=== PATIENT | female | born 1945 | race Caucasian/White ===

== ENCOUNTER 2022-12-21 17:02 | Emergency (ER) | payer SELFPAY ==
--- OUTSIDE RECORDS SUMMARY | 2022-12-21 17:16 | XMS REPORT | Continuity of Care Document ---
:1945 Author Organization [facility] t Address [address] [place] [address] Care Team Providers Name Role Phone YARA ARRIETA Primary Care Physician Unavailable ADA MCKEE Attending Clinician Unavailable QUENTIN Attending Clinician Unavailable DR YARA ARRIETA Attending Clinician Unavailable [phone] Attending Clinician Unavailable KAREN FALCON Attending Clinician Unavailable Gareth Attending Clinician Unavailable MARCELO TALLEY Attending Clinician Unavailable LORE POWERS Attending Clinician Unavailable YARA ARRIETA Attending Clinician Unavailable NERI FRASER Attending Clinician Unavailable Leigh Ann Attending Clinician Unavailable MP MULLINS Attending Clinician Unavailable MAXIMINO CERNA Attending Clinician Unavailable IMMANUEL WRAY Attending Clinician Unavailable JULIA COLON Attending Clinician Unavailable QUENTIN Admitting Clinician Unavailable DR YARA ARRIETA Admitting Clinician Unavailable Gareth Admitting Clinician Unavailable LORE POWERS Admitting Clinician Unavailable Leigh Ann Admitting Clinician Unavailable Payers Payer Name Policy Type Policy Number Effective Date Expiration Date S emil MEDICARE - OP [id number] MEDICARE - OP [id number] [place] B-[place]: [id number] 2011 [employer] 00:00:00 MELBA (PPO) [id number] Problems Condition Condition Condition Status Onset Resolution Last Treating Co mments Source Name Details Category Date Date Treatment Clinician Date Obesity Obesity Problem Active [facility] Osteoarthr Osteoarthr Problem Active [facility] Allergies, Adverse Reactions, Alerts Allergy Allergy Status Severity Reaction(s) Onset Inactive Treating Comm ents Source Name Type Date Date Clinician Naloxone Propensi Active Other (See Incontrol Methodi ty to Comments) 07-[address] adverse 00:00: movements Hospit a reaction 00 l s to drug Naloxone Allergy Active [facility] Family History Family Member Diagnosis Comments Start Date Stop Date Source Natural father Cancer [facility] Natural mother Cancer [facility] Social History Social Habit Start Date Stop Date Quantity Comments Source Alcohol intake 2017-09-02 2017-09-02 Current drinker [facility] 00:00:00 00:00:00 of alcohol Hospital (finding) Tobacco use and 2017-07-07 2017-07-07 Smokeless tobacco [facility] exposure 00:00:00 00:00:00 non-user Hospital Sex Ass[birth year] At [birth year] [facility] 00:00:00 00:00:00 Hospital Smoking Status Start Date Stop Date Source Never Smoker [facility] Medications Ordered Filled Start Stop Current Ordering Indication Dosage Frequency Signature Comments Components Source Medication Medication Date Date Medication? Clinician (SIG) Name Name dexlansopra 2016-10 Yes 60mg QD Take 60 mg Methodi zole 1-[address] (DEXILANT) 10:39: daily. Hospi ta 60 mg 59 l capsule leucovorin Yes TK 1 T PO Me thodi 5 mg tablet 9-[address] 00:00: AFTER Hospita 00 METHOTREXA l TE DOSE ONCE WEEKLY. methotrexat Yes INJECT 0.4 Methodi e 25 mg/mL 9-[address] syringe 00:00: WEEKLY Hospita 00 l ondansetron Yes Method i ODT 9-12 st (ZOFRAN-ODT 00:00: Hospit a ) 8 MG 00 l disintegrat ing tablet traMADol Yes TK 1 T PO Meth dulce (ULTRAM) 50 9-[address] mg tablet 00:00: P. Hospita 00 l buPROPion Yes TK 1 T PO Met hodi XL 9-[address] (WELLBUTRIN 00:00: Hospit a XL) 300 MG 00 l 24 hr tablet BOOSTRIX Yes INJECT Methodi TDAP 9-[address] 2.5-8-5 00:00: Hospita Lf-mcg-Lf/0 00 l .5mL vaccine amoxicillin Yes TK 1 T PO M ethodi -pot 9[address] clavulanate 00:00: DAYS Hospit a (AUGMENTIN) 00 l 875-125 mg per tablet butalbital- Yes TK 1 T PO M ethodi acetaminoph 8-[address] en-caff 00:00: UTD. MAX Hospit a (FIORICET, 00 OF 4 TS IN l ESGIC) 24 HOURS. 50-325-40 mg per tablet QUEtiapine Yes TK 1 T PO Me thodi (SEROquel) 8-[address] 200 MG 00:00: Hospita tablet 00 l zolpidem Yes TK 1 T PO Meth dulce (AMBIEN) 10 8-[address] mg tablet 00:00: Hospita 00 l predniSONE Yes TK 1 T PO Me thodi (DELTASONE) 8-[address] 5 mg tablet 00:00: Hospit a 00 l cyanocobala Yes INJECT 1 Me thodi min 1,000 7-[address] mcg/mL 00:00: Hospita injection 00 l gabapentin Yes Methodi (NEURONTIN) 7-01 st 600 mg 00:00: Hospita tablet 00 l ergocalcife Yes TK 1 C PO M ethodi rol 6-[address] (VITAMIN 00:00: Hospita D2) 50,000 00 l unit capsule bupivacaine bupivacaine No bupivacain [facility] HCl 0.5 % HCl 0.5 % e HCl 0.5 da (5 mg/mL) (5 mg/mL) % (5 Medic al injection injection mg/mL) Driss up solution solution injection solution bupropion bupropion No bupropion [facility] HCl XL 300 HCl XL 300 HCl XL 300 da mg 24 hr mg 24 hr mg 24 hr Med ical tablet, tablet, tablet, Group extended extended extended release release release TAKE 1 TAKE 1 TAKE 1 TABLET BY TABLET BY TABLET BY MOUTH DAILY MOUTH DAILY MOUTH DAILY butalbital- butalbital- No butalbital [facility] acetaminoph acetaminoph -acetamino da en-caffeine en-caffeine phen-caffe Medical 50 mg-325 50 mg-325 ine 50 Driss up mg-40 mg mg-40 mg mg-325 tablet TAKE tablet TAKE mg-40 mg 1 TABLET BY 1 TABLET BY tablet MOUTH EVERY MOUTH EVERY TAKE 1 DAY DAY TABLET BY NEEDED FOR NEEDED FOR MOUTH HEADACHE. HEADACHE. EVERY DAY MAX OF 4 MAX OF 4 NEEDED TABLETS IN TABLETS IN FOR 24 HOURS 24 HOURS HEADACHE. MAX OF 4 TABLETS IN 24 HOURS Bystolic 20 Bystolic 20 No Bystolic [facility] mg tablet mg tablet 20 mg da TAKE 1 TAKE 1 tablet Medical TABLET BY TABLET BY TAKE 1 Driss up MOUTH EVERY MOUTH EVERY TABLET BY DAY DAY MOUTH EVERY DAY Celestone Celestone No Celestone [facility] Soluspan 6 Soluspan 6 Soluspan 6 da mg/mL mg/mL mg/mL Medical suspension suspension suspension Group for for for injection injection injection Dexilant 60 Dexilant 60 No Dexilant [facility] mg capsule, mg capsule, 60 mg da delayed delayed capsule, Medic al release release delayed Group release diphenoxyla diphenoxyla No diphenoxyl [facility] te-atropine te-atropine ate-atropi da 2.5 2.5 ne 2.5 Medical mg-0.025 mg mg-0.025 mg mg-0.025 Group tablet TAKE tablet TAKE mg tablet 1 TABLET BY 1 TABLET BY TAKE 1 MOUTH EVERY MOUTH EVERY TABLET BY 8 HOURS 8 HOURS MOUTH NEEDED NEEDED EVERY 8 HOURS NEEDED folic acid folic acid No folic acid [facility] 1 mg tablet 1 mg tablet 1 mg d a TAKE 1 TAKE 1 tablet Medical TABLET BY TABLET BY TAKE 1 Driss up MOUTH EVERY MOUTH EVERY TABLET BY DAY DAY MOUTH EVERY DAY gabapentin gabapentin No gabapentin [facility] 600 mg 600 mg 600 mg da tablet TAKE tablet TAKE tablet Medical 1 TABLET BY 1 TABLET BY TAKE 1 Group MOUTH TWICE MOUTH TWICE TABLET BY DAILY AND 2 DAILY AND 2 MOUTH TABLETS TABLETS TWICE EVERY NIGHT EVERY NIGHT DAILY AND AT BEDTIME AT BEDTIME 2 TABLETS EVERY NIGHT AT BEDTIME hydroxychlo hydroxychlo No hydroxychl [facility] roquine 200 roquine 200 oroquine da mg tablet mg tablet 200 mg Med ical TAKE 2 TAKE 2 tablet Group TABLETS BY TABLETS BY TAKE 2 MOUTH EVERY MOUTH EVERY TABLETS BY DAY DAY MOUTH EVERY DAY irbesartan irbesartan No irbesartan [facility] 300 mg 300 mg 300 mg da tablet tablet tablet Medical Group lidocaine lidocaine No lidocaine [facility] HCl 10 HCl 10 HCl 10 da mg/mL (1 %) mg/mL (1 %) mg/mL (1 Medical injection injection %) Group solution solution injection solution Linzess 290 Linzess 290 No Linzess [facility] mcg capsule mcg capsule 290 mcg da TAKE 1 TAKE 1 capsule Medical CAPSULE BY CAPSULE BY TAKE 1 G roup MOUTH DAILY MOUTH DAILY CAPSULE BY NEEDED NEEDED MOUTH DAILY NEEDED metronidazo metronidazo No metronidaz [facility] le 500 mg le 500 mg ole 500 mg da tablet TAKE tablet TAKE tablet Medical 1 TABLET BY 1 TABLET BY TAKE 1 Group MOUTH TWICE MOUTH TWICE TABLET BY DAILY FOR 7 DAILY FOR 7 MOUTH DAYS DAYS TWICE DAILY FOR 7 DAYS ondansetron ondansetron No ondansetro [facility] 8 mg 8 mg n 8 mg da disintegrat disintegrat disintegra Medical ing tablet ing tablet ting Driss up DISSOLVE DISSOLVE tablet ONE TABLET ONE TABLET DISSOLVE BY MOUTH BY MOUTH ONE TABLET EVERY 8 EVERY 8 BY MOUTH HOURS HOURS EVERY 8 NEEDED NEEDED HOURS NEEDED pantoprazol pantoprazol No pantoprazo [facility] e 40 mg e 40 mg le 40 mg da tablet,zuhair tablet,zuhair tablet,del Medical yed release yed release ayed G roup release prednisone prednisone No prednisone [facility] 5 mg tablet 5 mg tablet 5 mg d a TAKE 1 TAKE 1 tablet Medical TABLET BY TABLET BY TAKE 1 Driss up MOUTH EVERY MOUTH EVERY TABLET BY DAY DAY MOUTH EVERY DAY quetiapine quetiapine No quetiapine [facility] 200 mg 200 mg 200 mg da tablet TAKE tablet TAKE tablet Medical 1 TABLET BY 1 TABLET BY TAKE 1 Group MOUTH DAILY MOUTH DAILY TABLET BY MOUTH DAILY sulfamethox sulfamethox No sulfametho [facility] azole 800 azole 800 xazole 800 da mg-trimetho mg-trimetho mg-trimeth Medical prim 160 mg prim 160 mg oprim 160 Group tablet TAKE tablet TAKE mg tablet 1 TABLET BY 1 TABLET BY TAKE 1 MOUTH TWICE MOUTH TWICE TABLET BY DAILY FOR 5 DAILY FOR 5 MOUTH DAYS DAYS TWICE DAILY FOR 5 DAYS tizanidine tizanidine No tizanidine [facility] 4 mg tablet 4 mg tablet 4 mg d a tablet Medical Group tramadol 50 tramadol 50 No tramadol [facility] mg tablet mg tablet 50 mg da TAKE 1 TAKE 1 tablet Medical TABLET BY TABLET BY TAKE 1 Driss up MOUTH EVERY MOUTH EVERY TABLET BY 6 HOURS 6 HOURS MOUTH EVERY 6 HOURS zolpidem 10 zolpidem 10 No zolpidem [facility] mg tablet mg tablet 10 mg da TAKE 1 TAKE 1 tablet Medical TABLET BY TABLET BY TAKE 1 Driss up MOUTH EVERY MOUTH EVERY TABLET BY DAY AT DAY AT MOUTH BEDTIME BEDTIME EVERY DAY NEEDED NEEDED AT BEDTIME NEEDED Vital Signs Vital Name Observation Time Observation Value Comments Source BP Diastolic 2021-08-07 00:00:00 85 mm[Hg] [facility] Height 2021-08-07 00:00:00 61 [facility]_i[facility] BMI (Body Mass 2021-08-07 00:00:00 34 kg/m2 [facility]) Group BP Systolic 2021-08-07 00:00:00 120 mm[Hg] [facility] Body Weight 2021-08-07 00:00:00 180 [lb_av] [facility] BP Diastolic 2021-03-04 00:00:00 85 mm[Hg] [facility] Height 2021-03-04 00:00:00 61 [in_i] [facility] BMI (Body Mass 2021-03-04 00:00:00 36.8 kg/m2 [facility] BP Systolic 2021-03-04 00:00:00 120 mm[Hg] [facility] Body Weight 2021-03-04 00:00:00 195 [lb_av] [facility] Procedures Procedure Date / Time Performing Clinician Source Performed XR, knee, 1 or 2 view 2021-03-04 00:00:00 [facility] Knee Arthroscopy/surgery [facility] Partial Hysterectomy [facility] Removal of Gallbladder [facility] Plan of Care Planned Activity Planned Date Details Comments Source Future Scheduled 2022-12-21 COVID-19 VACCINE (#1) [facility] Test 17:15:20 [code = COVID-19 VACCINE (#1)] Future Scheduled 2022-12-21 COLONOSCOPY SCREENING [facility] Test 17:15:20 [code = COLONOSCOPY SCREENING] Future Scheduled 2022-12-21 SHINGLES VACCINES ([facility] Test 17:15:20 of 2) [code = SHINGLES VACCINES (1 of 2)] Future Scheduled 2022-12-21 65+ PNEUMOCOCCAL Methodi [facility] Test 17:15:20 VACCINE (1 - PCV) [code = 65+ PNEUMOCOCCAL VACCINE (1 - PCV)] Future Scheduled 2022-12-21 INFLUENZA VACCINE [facility] Test 17:15:20 [code = INFLUENZA VACCINE] Encounters Start End Encounter Admission Attending Care Care Encounter Source Date/Time Date/Time Type Type Clinicians Facility Department ID 2022-08-04 2022-08-04 Emergency ER RYLEE [facility] [id number] [facility] 14:27:00 18:38:00 ADA -[id number] [facility] 2022-08-04 2022-08-04 emergency [id number] 14:27:00 14:27:00 [id number] 2022-05-04 2022-05-04 Outpatient [facility] [id number] [facility] 11:12:00 11:12:00 _JAYME [id number] da [facility] Outre h Program 2022-03-05 2022-03-05 [facility] [id number] El 14:49:00 14:49:00 [id number] [facility] 2021-10-17 2021-10-17 Emergency ER FRANCISCOJojoKAREN [facility] [id number] [place] 13:54:00 18:13:00 [id number] [facility] 2021-08-07 2021-08-07 Outpatient cMcDonald MMG MMG [facility] 01:29:00 01:29:00 1021 Medical Group 2021-08-07 2021-08-07 Outpatient cMcDonald [facility]G [facility] 01:29:00 01:29:00 1025 Medical Group 2021-08-07 2021-08-07 Marcelo ROBERT [place] - [id number] M [facility] 00:00:00 00:00:00 Discovery carol Talley MD: [address] [facility] [address], [place] [address] , Ph. 2021-03-04 2021-03-04 Outpatient DIRK TALLEY [facility] [id number] [facility] 14:03:00 14:03:00 MARCELO [id number] [facility] 2021-03-04 2021-03-04 Outpatient cMcDonald MMG MMG [facility] 03:45:00 03:45:00 0518 [facility] 2021-03-04 2021-03-04 Outpatient cMcDonald MMG MMG [facility] 03:45:00 03:45:00 0520 [facility] 2021-03-04 2021-03-04 Marcelo ROBERT [place] - [id number] M [facility] 00:00:00 00:00:00 Discovery carol Talley MD: [address] [facility] [address], [place] [address] , Ph. 2021-02-17 2021-02-17 Outpatient cMcDonald MMG MMG [facility] 09:11:00 09:11:00 0503 Medical Group 2021-02-17 2021-02-17 Outpatient cMcDonald MMG MMG [facility] 09:11:00 09:11:00 0512 Medical Group 2019-09-17 2019-09-22 Inpatient SHAMIR POWERS [facility] [id number] [facility] 21:14:00 13:46:00 [facility][id number] 2019-08-24 2019-08-24 Outpatient DIRK ARRIETA, [facility] [id number] [facility] 11:11:00 11:11:00 YARA -[id number] [facility] 2019-07-03 2019-07-03 Outpatient DIRK ARRIETA, [facility] [id number] [facility] 11:02:00 11:02:00 YARA -[id number] [facility] 2018-07-27 2018-07-27 Outpatient DIRK ARRIETA, [facility] [id number] [facility] 10:38:00 10:38:00 YARA -[id number] [facility] 2017-02-15 2017-02-15 Outpatient DIRK ARRIETA, [facility] [id number] [facility] 13:16:00 13:16:00 YARA -[id number] [facility] 2016-10-30 2016-10-30 Outpatient DIRK FRASER, [facility] [id number] [place] 10:55:00 10:55:00 NERI -[id number] [facility] 2016-09-18 2016-09-18 Outpatient C_Hall MMG MMG [id number] [facility] 04:09:00 04:09:00 0429 [facility] 2016-09-18 2016-09-18 Outpatient C_Hall MMG MMG [id number] [facility] 04:09:00 04:09:00 0609 [facility] 2016-06-11 2016-06-11 Outpatient DIRK MULLINS, [facility] [id number] [place] 12:16:00 12:16:00 MP [id number] [facility] 2016-05-26 2016-05-26 Outpatient DIRK CERNA [facility] [id number] [place] 12:58:00 12:58:00 MAXIMINO [id number] [facility] 2016-04-16 2016-04-16 Outpatient DIRK CERNA, [facility] [id number] [place] 10:39:00 10:39:00 MAXIMINO [id number] [facility] 2016-02-04 2016-02-04 Outpatient DIRK ARRIETA, [facility] [id number] [facility] 12:00:00 12:00:00 YARA [id number] [facility] 2015-08-15 2015-08-15 Outpatient DIRK ARRIETA, [facility] [id number] [facility] 11:55:00 11:55:00 YARA [id number] [facility] 2014-12-31 2014-12-31 Outpatient DIRK ARRIETA, [facility] [id number] [facility] 11:51:00 11:51:00 YRAA [id number] [facility] 2014-11-22 2014-11-22 Outpatient DIRK WRAY, [facility] [id number] [place] 13:53:00 13:53:00 IMMANUEL [id number] [facility] 2014-10-04 2014-10-04 Outpatient DIRK WRAY, [facility] [id number] [place] 11:05:00 11:05:00 IMMANUEL [id number] [facility] 2013-08-14 2013-08-14 Outpatient DIRK ARRIETA, [facility] [id number] [facility] 14:37:00 14:37:00 YARA [id number] [facility] 2012-04-11 2012-04-11 Emergency ER [facility], [facility] [id number] [facility] 17:37:00 20:46:00 JULIA [id number] [facility] 2012-03-22 2012-03-22 Outpatient MALINDA ARRIETA, [facility] [id number] [place] 10:55:00 10:55:00 YARA [id number] [facility] 2011-07-30 2011-07-30 Outpatient DIRK MULLINS, [facility] [id number] [place] 08:13:00 08:13:00 MP [id number] [facility] 2011-07-06 2011-07-06 Outpatient DIRK MULLINS, [facility] [id number] [place] 11:17:00 11:17:00 MP [id number] [facility] Results This patient has no known results.
[2022-12-21] MEDS ORDERED: ONDANSETRON 4 MG/2 ML VIAL ONE (17:45)
[2022-12-21] MEDS ORDERED: FENTANYL CITR 100 MCG/2 ML ONE ×2 (18:29→18:32)
[2022-12-21 19:13] LABS: Absolute Lymphocytes (CBC) 0.5 K/uL (0.7-4.9); Hematocrit 35.9 % (36.0-45.0); Lymphocytes % 3.6 % (15.3-44.8); MCV 83.5 fL (80-100); MPV 7.2 fL (7.6-11.3); RBC Red Blood Cell Count 4.31 M/uL (3.86-4.86)
--- NOTE | 2022-12-21 19:17 | RAD REPORT ---
EXAM DESCRIPTION: CT - Head C Spine Mpr Wo Con - 12/21/2022 6:50 pm CLINICAL HISTORY: Head and neck injury status post fall. Head and neck pain COMPARISON: None. TECHNIQUE: Computed axial tomography of the head and cervical spine was obtained. Sagittal and coronal reconstruction was performed. All CT scans are performed using dose optimization technique as appropriate and may include automated exposure control or mA/KV adjustment according to patient size. FINDINGS: An intracranial bleed is not seen. The ventricles are normal in caliber. No significant hypodensity within the brain. An extra-axial fluid collection is not noted. Fluid within the visualized sinuses and mastoids is not seen A cervical fracture is not visualized. C1 lies superior to the occipital condyles. Slight anterior subluxation C2 on C3 and C3 on C4. Mild anterior subluxation C4 on C5. Moderate spond ylosis mid and distal cervical spine consisting to space narrowing and osteophytes. Scoliosis involves the spine. IMPRESSION: No acute intracranial abnormality is seen. A cervical fracture is not visualized. C1 lies superior to the occipital condyles. This probably is a chronic finding for the patient. [facility] er, if the patient has clinical symptoms to suggest an acute ligamentous injury then MRI would be rec ommended
--- NOTE | 2022-12-21 19:24 | RAD REPORT ---
EXAM DESCRIPTION: RAD - Hip Left 2 View - 12/21/2022 6:52 pm CLINICAL HISTORY: Left hip pain status post injury FINDINGS: Intertrochanteric fracture left femur. The fracture involves the lesser and greater trochanters. Moderate displacement of fracture fragments and marked angulation present at the fracture site. No dislocation
--- NOTE | 2022-12-21 19:26 | RAD REPORT ---
EXAM DESCRIPTION: RAD - Pelvis - 12/21/2022 6:52 pm CLINICAL HISTORY: Pelvic pain status post injury FINDINGS: Intertrochanteric fracture left femur. The fracture involves the lesser and greater trocha nters. Moderate displacement of fracture fragments and marked angulation present at the fracture site. No dislocation
--- NOTE | 2022-12-21 19:35 | RAD REPORT ---
EXAM DESCRIPTION: Pau Single View12/21/2022 6:51 pm CLINICAL HISTORY: Chest pain COMPARISON: none FINDINGS: The lungs appear clear of acute infiltrate. The heart is normal size Opacity mid medial right hemidiaphragm could represent an eventration or hernia
[2022-12-21 19:38] LABS: Albumin 3.4 g/dL (3.4-5.0); Bilirubin Total 0.6 mg/dL (0.2-1.0); Magnesium 1.8 mg/dL (1.6-2.4); Potassium 3.7 mmol/L (3.5-5.1); Protein, Total 7.2 g/dL (6.4-8.2); Troponin High Sensitivity 17.5 pg/mL (<58.9)
[2022-12-21] MEDS ORDERED: METOCLOPRAMIDE 10 MG/2mL INJ ONE (20:50)
[2022-12-21] MEDS ORDERED: HYDROMORPHONE HCL 0.5 MG/0.5 ML INJ ONE (20:51)
[2022-12-21 21:40] LABS: Specific Gravity 1.016 (1.005-1.030); Urine Bacteria <20 /HPF (<20); Urine Bilirubin 1+ (Negative); Urine Blood Trace (Negative); Urine Clarity Clear (Clear); Urine Color Yellow (Yellow); Urine Glucose NEGATIVE (Negative); Urine Mucus Slight /HPF (None Seen); Urine Protein 1+ (Negative); Urine Urobilinogen 1+ (Normal)
--- NOTE | 2022-12-21 23:28 | EDPHYS ---
Physician Documentation [facility] Name: Thuy Booth Age: 77 yrs Sex: Female : 1945 Arrival Date: 12/21/2022 Time: 17:14 Bed 5 Private MD: ED Physician Lazarus Dsouza HPI: 12/21 18:52 This 77 yrs old Female presents to ER via EMS with complaints of Fall Injury. rt 18:52 Patient presents to the ED with fall. Patient states that she got dizzy, did not rt completely lose consciousness. This caused her to fall. Of note, this is the patient's third fall in a few days. Patient states that she did hit her head. The patient reports pain to her left hip where she landed as well. States that she still feels somewhat dizzy and nauseated. Denies chest pain. Denies other acute complaints at this time, symptoms are moderate in severity, no other aggravating alleviating factors. Pain is aching nature, nonradiating.. Historical: - Allergies: 17:15 No Known Allergies; bp - Immunization history:: Adult Immunizations up to date. - Social history:: Smoking status: Patient denies any tobacco usage or history of. - Family history:: not pertinent. ROS: 18:52 Constitutional: Negative for fever, chills, and weight loss, Cardiovascular: Negative rt for chest pain, palpitations, and edema, Respiratory: Negative for shortness of breath, cough, wheezing, and pleuritic chest pain, Abdomen/GI: Negative for abdominal pain, nausea, vomiting, diarrhea, and constipation, Skin: Negative for injury, rash, and discoloration, Psych: Negative for depression, anxiety, suicide ideation, homicidal ideation, and hallucinations. 18:52 MS/extremity: Positive for injury or acute deformity, decreased range of motion. 18:52 Neuro: Positive for headache, near syncope. Exam: 18:52 Constitutional: This is a well developed, well nourished patient who is awake, alert, rt and in no acute distress. Head/Face: Normocephalic, atraumatic. Chest/axilla: Normal chest wall appearance and motion. Nontender with no deformity. No lesions are appreciated. Cardiovascular: Regular rate and rhythm with a normal S1 and S2. No gallops, murmurs, or rubs. Normal PMI, no JVD. No pulse deficits. Respiratory: Lungs have equal breath sounds bilaterally, clear to auscultation and percussion. No rales, rhonchi or wheezes noted. No increased work of breathing, no retractions or nasal flaring. Abdomen/GI: Soft, non-tender, with normal bowel sounds. No distension or tympany. No guarding or rebound. No evidence of tenderness throughout. Skin: Warm, dry with normal turgor. Normal color with no rashes, no lesions, and no evidence of cellulitis. Neuro: Awake and alert, GCS 15, oriented to person, place, time, and situation. Cranial nerves II-XII grossly intact. Motor strength 5/5 in all extremities. Sensory grossly intact. Cerebellar exam normal. Normal gait. Psych: Awake, alert, with orientation to person, place and time. Behavior, mood, and affect are within normal limits. 18:52 ECG was reviewed by the Attending Physician. 18:52 Musculoskeletal/extremity: Left lower extremity is externally rotated, foreshortened, tenderness to the left hip, pulses, motor, sensation intact, no evidence of compartment syndrome.. Vital Signs: 17:14 BP 152 / 107; Pulse 106; Resp 18; Temp 97.2; Pulse Ox 95% ; bp 18:31 BP 165 / 90; Pulse 100; Resp 24; Pulse Ox 100% ; bp 20:03 BP 164 / 70; Pulse 91; Resp 18; Pulse Ox 100% ; kl 21:45 BP 146 / 67; Pulse 93; Resp 18; Pulse Ox 100% on R/A; Pain 9/10; pf1 MDM: 17:19 Patient medically screened. rt 19:23 Differential diagnosis: closed head injury, contusion, fracture, multiple trauma, sp4 sprain, strain. ED course: Patient care assumed from daytime MD - proximal femur fracture, moderately displaced left hip fracture, patient warrants transfer to the nearest trauma center for hip fixation. 12/21 17:18 Order name: CBC with Diff rt 12/21 17:18 Order name: CMP rt 12/21 17:18 Order name: Troponin High Sensitivity rt 12/21 17:18 Order name: Magnesium rt 12/21 17:18 Order name: EKG; Complete Time: 17:19 rt 12/21 17:18 Order name: EKG - Nurse/Tech; Complete Time: 18:31 rt 12/21 17:18 Order name: CT Head C Spine rt 12/21 17:18 Order name: Chest Single View XRAY rt 12/21 17:18 Order name: Pelvis XRAY rt 12/21 17:18 Order name: Hip Left 2 View XRAY rt 12/21 19:18 Order name: CT; Complete Time: 21:38 EDMS 12/21 19:21 Order name: Way; Complete Time: 21:28 sp4 12/21 19:21 Order name: Urinalysis W/Microscopic sp4 12/21 19:24 Order name: RAD; Complete Time: 21:38 EDMS 12/21 19:26 Order name: RAD; Complete Time: 21:38 EDMS 12/21 19:29 Order name: CBC with Automated Diff; Complete Time: 21:38 EDMS 12/21 19:36 Order name: RAD; Complete Time: 21:38 EDMS 12/21 19:39 Order name: Comprehensive Metabolic Panel; Complete Time: 21:38 EDMS 12/21 19:39 Order name: Troponin High Sensitivity; Complete Time: 21:38 EDMS 12/21 19:39 Order name: Magnesium; Complete Time: 21:38 EDMS 12/21 21:40 Order name: Urinalysis W/Microscopic EDMS EC:52 Rhythm is regular, Sinus tachycardia with Tremor artifact limits interpretation, heart rt rate appears to be at about 100, rest of the EKG is uninterpretable given tremors. Administered Medications: 18:00 Drug: Zofran (Ondansetron) 4 mg Route: IVP; Site: left hand; bp 18:20 Drug: fentaNYL (PF) 50 mcg Route: IVP; Site: left hand; bp 18:30 Drug: fentaNYL (PF) 50 mcg Route: IVP; Site: left hand; bp 20:53 Drug: Reglan (metoCLOPramide) 10 mg Route: IVP; Site: left hand; kl 20:54 Drug: Dilaudid (HYDROmorphone) 0.5 mg Route: IVP; Site: left hand; kl Disposition Summary: 12/21/22 23:27 Transfer Ordered Accepting Physician: to [facility] for fracture over the left hip sp4 Transfer Location: [facility] sp4 Reason: Higher level of care sp4 Condition: Stable sp4 Problem: new sp4 Symptoms: are unchanged sp4 Diagnosis - Displaced intertrochanteric fracture of left femur, initial encounter for closed sp4 fracture Forms: - Medication Reconciliation Form sp4 - SBAR form sp4 Signatures: Dispatcher [employer] EDAmbar Rod, Vik Calderón RN, RN RN bp [place], Ryan, MD MD rt Lazarus Dsouza MD MD sp4
--- NOTE | 2022-12-21 23:28 | ER ---
Nurse's Notes [facility] Name: Thuy Booth Age: 77 yrs Sex: Female : 1945 Arrival Date: 12/21/2022 Time: 17:14 Bed 5 Private MD: Diagnosis: Displaced intertrochanteric fracture of left femur, initial encounter for closed fracture Presentation: 12/21 17:14 Chief complaint: EMS states: FALL AT HOME 2/2 DIZZINESS. Coronavirus screen: At this bp time, the client does not indicate any symptoms associated with coronavirus-19. Ebola Screen: No symptoms or risks identified at this time. Initial Sepsis Screen: Does the patient meet any 2 criteria? HR > 90 bpm. No. Patient's initial sepsis screen is negative. Does the patient have a suspected source of infection? No. Patient's initial sepsis screen is negative. Risk Assessment: Do you want to hurt yourself or someone else? Patient reports no desire to harm self or others. Onset of symptoms was December 21, 2022 at 05:00. Care prior to arrival: Cervical collar in place. Glucose check: 82. 17:14 Method Of Arrival: [facility] bp 17:14 Acuity: ALIDA 3 bp Triage Assessment: 17:15 General: Appears distressed, uncomfortable, obese, Behavior is cooperative, appropriate bp for age, anxious. Pain: Complains of pain in left hip. EENT: No deficits noted. Neuro: No deficits noted. Cardiovascular: No deficits noted. Respiratory: No deficits noted. GI: No signs and/or symptoms were reported involving the gastrointestinal system. : No signs and/or symptoms were reported regarding the genitourinary system. Derm: No deficits noted. Musculoskeletal: Bony deformity noted of left hip. Historical: - Allergies: 17:15 No Known Allergies; bp - Immunization history:: Adult Immunizations up to date. - Social history:: Smoking status: Patient denies any tobacco usage or history of. - Family history:: not pertinent. Screenin:17 [facility] ED Fall Risk Assessment (Adult) History of falling in the last 3 months, bp including since admission Yes- physiologic fall (2 pts). Abuse screen: Denies threats or abuse. Denies injuries from another. Nutritional screening: No deficits noted. Tuberculosis screening: No symptoms or risk factors identified. Assessment: 17:17 General: SEE TRIAGE NOTE. bp 18:30 Reassessment: CT PENDING. UNABLE TO OBTAIN BLOOD SPECIMEN FROM PIV, PHLEBOTOMY bp CONTACTED FOR LAB DRAW. 19:30 General: Appears in no apparent distress. uncomfortable, well groomed, well developed, pf1 Behavior is cooperative, appropriate for age. 19:30 Pain: Complains of pain in left hip Pain currently is 9 out of 10 on a pain scale. pf1 Neuro: No deficits noted. Level of Consciousness is awake, alert, obeys commands, Oriented to person, place, time, situation. Cardiovascular: No deficits noted. Capillary refill < 3 seconds Patient's skin is warm and dry. Respiratory: No deficits noted. Airway is patent Trachea midline Respiratory effort is even, unlabored, Respiratory pattern is regular, symmetrical. GI: No deficits noted. No signs and/or symptoms were reported involving the gastrointestinal system. : No deficits noted. No signs and/or symptoms were reported regarding the genitourinary system. EENT: No deficits noted. No signs and/or symptoms were reported regarding the EENT system. Derm:. Musculoskeletal: Circulation, motion, and sensation intact. Capillary refill < 3 seconds, Bony deformity noted of left hip. 20:03 Reassessment: Patient is alert, oriented x 3, equal unlabored respirations, skin kl warm/dry/pink. Patient denies pain at this time. Patient states feeling better. Patient states symptoms have improved. Musculoskeletal: Circulation, motion, and sensation intact. Bony deformity noted of left hip. 21:00 Reassessment: Patient appears in no apparent distress at this time. No changes from pf1 previously documented assessment. Patient and/or family updated on plan of care and expected duration. Pain level reassessed. Patient is alert, oriented x 3, equal unlabored respirations, skin warm/dry/pink. Vital Signs: 17:14 BP 152 / 107; Pulse 106; Resp 18; Temp 97.2; Pulse Ox 95% ; bp 18:31 BP 165 / 90; Pulse 100; Resp 24; Pulse Ox 100% ; bp 20:03 BP 164 / 70; Pulse 91; Resp 18; Pulse Ox 100% ; kl 21:45 BP 146 / 67; Pulse 93; Resp 18; Pulse Ox 100% on R/A; Pain 9/10; pf1 ED Course: 17:14 Patient arrived in ED. bp 17:15 Triage completed. bp 17:15 Arm band placed on. bp 17:16 Linus Mahmood MD is Attending Physician. rt 17:17 Vik Díaz, RN is Primary Nurse. bp 17:17 Patient has correct armband on for positive identification. Bed in low position. Call bp light in reach. Side rails up X2. 18:14 Inserted saline lock: 24 gauge in left hand, using aseptic technique. zm 19:16 Attending Physician role handed off by Linus Mahmood MD sp4 19:16 Lazarus Dsouza MD is Attending Physician. sp4 20:42 Way cath inserted, using sterile technique, 16 Fr., returned chilo urine. Patient kl tolerated well. 21:25 No provider procedures requiring assistance completed. pf1 21:28 Urinalysis W/Microscopic Sent. pf1 Administered Medications: 18:00 Drug: Zofran (Ondansetron) 4 mg Route: IVP; Site: left hand; bp 18:20 Drug: fentaNYL (PF) 50 mcg Route: IVP; Site: left hand; bp 18:30 Drug: fentaNYL (PF) 50 mcg Route: IVP; Site: left hand; bp 20:53 Drug: Reglan (metoCLOPramide) 10 mg Route: IVP; Site: left hand; kl 20:54 Drug: Dilaudid (HYDROmorphone) 0.5 mg Route: IVP; Site: left hand; kl Medication: 17:17 VIS not applicable for this client. bp Outcome: 23:27 ER care complete, transfer ordered by . sp4 Signatures: Ambar Narvaez RN RN kl Peltier, Brian, RN RN bp Martinez, Zaina Linus Mahmood MD MD rt Zoila montoya RN RN pf1 Lazarus Dsouza MD MD sp4 Corrections: (The following items were deleted from the chart) 18:33 18:30 Reassessment: CT PENDING bp bp
[2022-12-21] MEDS ORDERED: D5 0.45 NS 1,000 ML IV ONE (23:39)
[2022-12-22] MEDS ORDERED: HYDROMORPHONE HCL 0.5 MG/0.5 ML INJ ONE
[2022-12-22] MEDS ORDERED: HYDROMORPHONE HCL 1 MG/ML INJ ONE ×2 (03:40→04:09)
[2022-12-22] MEDS ORDERED: ONDANSETRON 4 MG/2 ML VIAL ONE ×2 (03:40)
[2022-12-22 04:26] VITALS: TEMP 97.2
[2022-12-22 04:32] VITALS: O2SAT 100
[2022-12-22 04:39] VITALS: BP 146/67
--- NOTE | 2022-12-22 17:32 | EKG ---
Test Date: 2022-12-22 Test Time: 01:11:09 Training Personnel Supervisor: ESA MEASUREMENT RESULTS: Intervals: Rate: 98 WI: 174 QRSD: 138 QT: 392 QTc: 500 [place]: P: -2 WI: 174 QRS: -62 T: 87 INTERPRETIVE STATEMENTS: Normal sinus rhythm Left axis deviation Left bundle branch block Abnormal ECG Compared to ECG 12/21/2022 18:16:01 Left-axis deviation now present Left bundle-branch block now present ST (T wave) deviation no longer present Electronically Signed On 12-22-22 17:31:02 [facility] TECHNICIAN by Bhaskar Caldwell
--- NOTE | 2022-12-22 17:33 | EKG ---
Test Date: 2022-12-21 Test Time: 18:16:01 Supervisor [place]: BP MEASUREMENT RESULTS: Intervals: Rate: 153 [place]: QRSD: 96 QT: 350 QTc: 558 [place]: P: [place]: QRS: 40 T: -77 INTERPRETIVE STATEMENTS: Sinus rhythm with artifact Abnormal ECG No previous ECG available for comparison Electronically Signed On 12-22-22 17:31:56 PACKING CLERK by Bhaskar Caldwell
== END 2022-12-22 04:10 | disposition short-term general hospital (02) ==
LOC: ER 17:02
DX: S72.142A Displaced intertrochanteric fracture of left femur, initial encounter for closed fracture (principal); R55 Syncope and collapse; R51.9 Headache, unspecified
CPT/HCPCS: 36415; 51702; 70450; 71045; 72125; 72170; 80053; 81001; 83735; 84484; 85025; 93005; 96361; 96374; 96375; 99285; J1170; J2405; J2765; J3010; J7799